=== PATIENT | female | born 1940 | race Caucasian/White ===

== ENCOUNTER 2022-08-27 13:55 | Outpatient (CLI) | payer MEDICARE, BC | END 2022-08-27 13:56 | disposition home or self-care (01) | LOC: CSHMAMMO 13:55 | PROVIDERS: ATTEND Internal Medicine | DX: M85.851 Other specified disorders of bone density and structure, right thigh (principal); M85.852 Other specified disorders of bone density and structure, left thigh | CPT/HCPCS: 77063; 77067; 77080 ==

== ENCOUNTER 2024-04-13 15:04 | Outpatient (CLI) | payer MEDICARE | END 2024-04-13 15:05 | disposition home or self-care (01) | LOC: CSHRAD 15:04 | PROVIDERS: ATTEND Internal Medicine Rheumatology | DX: M25.541 Pain in joints of right hand (principal); M25.542 Pain in joints of left hand; M19.042 Primary osteoarthritis, left hand; M19.041 Primary osteoarthritis, right hand ==